=== PATIENT | female | born 1995 | race Caucasian/White ===

== ENCOUNTER 2020-05-30 15:45 | Outpatient (CLI) | payer OTHER ==
--- NOTE | 2020-05-30 17:09 | MRI Report ---
PROCEDURE: Knee LT W/O INDICATIONS: LT KNEE PAIN TECHNIQUE: Noncontrast sagittal PD fast spin echo and T2 fast spin echo with fat saturation, sagittal 3-D gradie nt sequence with fat saturation; coronal T1 spin echo and PD fast spin echo with fat saturation, and axial PD fast spin echo with fat saturation through the knee. COMPARISON: None. FINDINGS: Image quality: Excellent. Menisci: Medial meniscus intact. Lateral meniscus intact. Cruciate ligaments: Anterior cruciate ligament appears intact. Posterior cruciate ligament appears intact. Medial structures: The medial collateral ligament appears intact. The semimembranosus tendon appears intact. Visualized portions of the pes anserinus tendons appear normal. No abnormal bursal fluid. Lateral structures: Lateral collateral ligament appears grossly intact. Biceps femoris tendon appears intact. Iliotibial band within normal limits. Popliteus tendon within normal limits. Anterior structures: Patellar tendon appears intact Quadriceps tendon appears intact. Medial and lateral patellofemoral ligaments appear grossly intact. Patellar alignment is normal. Hoffa's fat pad unremarkable. Bones and cartilage: No bone marrow contusions or fractures. Within the medial compartment, no focal cartilage defect Within the lateral compartment, no focal cartilage defect Within the patellofemoral compartment, no focal cartilage defect Joint space: No joint effusion. Trace Gilman's cyst No specific evidence of loose body identified. IMPRESSION: Trace Gilman's cyst. Elsewhere, no internal derangement identified Reviewed by: Austin Nava MD on 05/30/2020 5:08 PM PST Approved by: Austin Nava MD on 05/30/2020 5:08 PM PST Station ID: [id number]
== END 2020-05-30 15:46 | disposition home or self-care (01) ==
LOC: DI 15:45
PROVIDERS: ATTEND Student in an Organized Health Care Education/Training Program
DX: M71.22 Synovial cyst of popliteal space [Baker], left knee (principal)